=== PATIENT | female | born 1975 | race Caucasian/White ===

== ENCOUNTER → 2018-01-15 | Outpatient (CLI) | payer BC ==
--- NOTE | 2018-01-20 09:58 | MM ---
Reason for exam: screening (asymptomatic). Last mammogram was performed 4 years and 1 month ago. History: Patient has history of other cancer at age 36. Family history of breast cancer in paternal grandmother. Took hormonal contraceptives for 11 years beginning at age 20. Physical Findings: A clinical breast exam by your physician is recommended on an annual basis and results should be correlated with mammographic findings. MG 3D Screening Mammo W/Cad Bilateral CC and MLO view(s) were taken. Prior study comparison: December 20, 2013, bilateral digital screening mammo w/CAD. The breast tissue is heterogeneously dense. This may lower the sensitivity of mammography. No suspicious abnormality. No significant changes when compared with prior studies. ASSESSMENT: Negative, BI-RAD 1 RECOMMENDATION: Routine screening mammogram of both breasts in 1 year.
== END | disposition home or self-care (01) ==
LOC: RADMAMWWP 08:35
PROVIDERS: ATTEND Obstetrics & Gynecology
DX: Z12.31 Encounter for screening mammogram for malignant neoplasm of breast (principal)
CPT/HCPCS: 77063; 77067

== ENCOUNTER 2020-06-09 11:34 | Emergency (ER) | payer BC ==
--- NOTE | 2020-06-09 12:09 | ED ---
General Adult HPI - General Chief complaint: Seizure Stated complaint: Seizure Time Seen by Provider: 06/09/20 12:08 Source: patient, EMS Mode of arrival: EMS Limitations: no limitations - History of Present Illness Initial comments: Patient presents the ED by ambulance for evaluation. Patient states that she has had intermittent nausea and vomiting for the past 2 days. Patient states that she lost consciousness after vomiting once today, and she states that her reported that she may have had a seizure. Patient denies history of seizure disorder. Patient states that she is been under a lot of stress recently, and she states that she has felt very anxious. Patient states that she drinks about 2-3 glasses of wine daily, and she's been doing so for many years. Patient denies feeling shaky or ever having a seizure in the past when not drinking. Patient denies drinking any alcohol today. Patient denies illicit drug use. Patient denies having any pain, fever or chills, cough or cold symptoms, dysuria or urinary symptoms, headache, focal numbness/weakness/neuro deficit, visual changes, speech problems, neck/back/extremity pain, chest pain, dyspnea, palpitations, dizziness, abdominal pain, diarrhea, bloody or melanotic stool, hematemesis, or any other symptoms or complaints. - Related Data Home Medications Medication Instructions Recorded Confirmed Atorvastatin [Lipitor] 10 mg PO HS 06/09/20 06/09/20 Escitalopram [Lexapro] 20 mg PO HS 06/09/20 06/09/20 Metoprolol Succinate (ER) [Toprol 25 mg PO HS 06/09/20 06/09/20 Xl] Spironolactone [Aldactone] 25 mg PO HS 06/09/20 06/09/20 Allergies Allergy/AdvReac Type Severity Reaction Status Date / Time No Known Allergies Allergy Verified 06/09/20 13:14 Review of Systems ROS Statement: Those systems with pertinent positive or pertinent negative responses have been documented in the HPI. ROS Other: All systems not noted in ROS Statement are negative. Past Medical History Past Medical History: Asthma, Hypertension History of Any Multi-Drug Resistant Organisms: None Reported Past Surgical History: No Surgical Hx Reported Past Psychological History: Anxiety Smoking Status: Never smoker Past Alcohol Use History: Abuse, Daily, Heavy Past Drug Use History: None Reported General Exam Limitations: no limitations General appearance: alert, in no apparent distress Head exam: Present: atraumatic, normocephalic Eye exam: Present: normal appearance, PERRL, EOMI ENT exam: Present: normal oropharynx, mucous membranes moist Neck exam: Present: other (Trachea is in midline). Absent: tenderness, meningismus Respiratory exam: Present: normal lung sounds bilaterally. Absent: respiratory distress, wheezes, rales, rhonchi, stridor Cardiovascular Exam: Present: regular rate, normal rhythm, normal heart sounds, other (Normal radial pulses bilaterally) GI/Abdominal exam: Present: soft, normal bowel sounds. Absent: distended, tenderness, guarding Extremities exam: Present: full ROM. Absent: tenderness, pedal edema, calf tenderness Back exam: Absent: tenderness Neurological exam: Present: alert, oriented X3, CN II-XII intact. Absent: motor sensory deficit Psychiatric exam: Present: normal affect, normal mood Skin exam: Present: warm, dry, intact, normal color Course Vital Signs 06/09/20 06/09/20 11:45 13:04 Temperature 98.8 F Pulse Rate 99 94 Respiratory 17 18 Rate Blood Pressure 151/100 149/101 O2 Sat by Pulse 96 96 Oximetry - Reevaluation(s) Reevaluation #1: 06/09/20 13:28 Case, H&P, test results thus far and head CT report were discussed with Dr. Moran (ED physician at [facility]). Ambulance transfer to the [facility] ED was accepted by Dr. Moran. She has no further recommendations at this time. 06/09/20 13:34 Patient and are aware of the patient's test results thus far/head CT report and my discussion with Dr. Moran as above. Patient continues to deny having a headache, and she denies development of any new symptoms while in the ED. Patient continues to have a normal neurological exam, and she remains alert and breathing comfortably. Patient agrees with ambulance transfer to the [facility] ED at this time. EKG Findings - EKG Comments: EKG Findings:: Normal sinus rhythm, ventricular rate of 96 bpm, no ectopy, normal IA and QRS intervals, normal QT interval, nonspecific ST and T-wave abnormality, normal axis Medical Decision Making - Medical Decision Making Patient has been alert and in no acute distress with stable vital signs while in the ED. Patient has had a normal neurological exam on repeat. Patient's ED evaluation is positive for an elevated lipase level consistent with acute pancreatitis, as well as a noncontrast head CT that shows a possible petechial hemorrhage in the right frontal region. Given the patient's head CT findings, will transfer the patient to the [facility] ED for neurosurgical evaluation. Patient was treated with IV fluids and Ativan 1 mg IV in the ED. - Lab Data Result diagrams: 06/09/20 12:20 06/09/20 12:20 Lab Results 06/09/20 06/09/20 06/09/20 Range/Units 12:20 12:20 12:20 WBC 6.7 (3.8-10.6) k/uL RBC 4.20 (3.80-5.40) m/uL Hgb 14.9 (11.4-16.0) gm/dL Hct 44.7 (34.0-46.0) % MCV 106.4 H (80.0-100.0) fL MCH 35.4 H (25.0-35.0) pg MCHC 33.3 (31.0-37.0) g/dL RDW 12.8 (11.5-15.5) % Plt Count 111 L (150-450) k/uL Neutrophils % 83 % Lymphocytes % 7 % Monocytes % 6 % Eosinophils % 2 % Basophils % 1 % Neutrophils # 5.5 (1.3-7.7) k/uL Lymphocytes # 0.5 L (1.0-4.8) k/uL Monocytes # 0.4 (0-1.0) k/uL Eosinophils # 0.1 (0-0.7) k/uL Basophils # 0.1 (0-0.2) k/uL Macrocytosis Slight PT (9.0-12.0) sec INR (<1.2) APTT (22.0-30.0) sec Sodium 134 L (137-145) mmol/L Potassium 4.2 (3.5-5.1) mmol/L Chloride 94 L (98-107) mmol/L Carbon Dioxide 18 L (22-30) mmol/L Anion Gap 22 mmol/L BUN 10 (7-17) mg/dL Creatinine 0.57 (0.52-1.04) mg/dL Est GFR (CKD-EPI)AfAm >90 (>60 ml/min/1.73 sqM) Est GFR (CKD-EPI)NonAf >90 (>60 ml/min/1.73 sqM) Glucose 229 H (74-99) mg/dL Calcium 9.6 (8.4-10.2) mg/dL Magnesium 1.7 (1.6-2.3) mg/dL Total Bilirubin 4.1 H (0.2-1.3) mg/dL AST 216 H (14-36) U/L ALT 105 H (4-34) U/L Alkaline Phosphatase 99 (38-126) U/L Troponin I 0.016 (0.000-0.034) ng/mL Total Protein 8.1 (6.3-8.2) g/dL Albumin 5.5 H (3.5-5.0) g/dL Lipase 86016 H (23-300) U/L HCG, Qual Not Detected Urine Color Urine Appearance (Clear) Urine pH (5.0-8.0) Ur Specific Sumner (1.001-1.035) Urine Protein (Negative) Urine Glucose (UA) (Negative) Urine Ketones (Negative) Urine Blood (Negative) Urine Nitrite (Negative) Urine Bilirubin (Negative) Urine Urobilinogen (<2.0) mg/dL Ur Leukocyte Esterase (Negative) Urine RBC (0-5) /hpf Urine WBC (0-5) /hpf Ur Squamous Epith Cells (0-4) /hpf Hyaline Casts (0-2) /lpf Urine Mucus (None) /hpf Urine Opiates Screen (NotDetected) Ur Oxycodone Screen (NotDetected) Urine Methadone Screen (NotDetected) Ur Propoxyphene Screen (NotDetected) Ur Barbiturates Screen (NotDetected) U Tricyclic Antidepress (NotDetected) Ur Phencyclidine Scrn (NotDetected) Ur Amphetamines Screen (NotDetected) U Methamphetamines Scrn (NotDetected) U Benzodiazepines Scrn (NotDetected) Urine Cocaine Screen (NotDetected) U Marijuana (THC) Screen (NotDetected) Serum Alcohol <10 mg/dL 06/09/20 06/09/20 Range/Units 12:20 12:59 WBC (3.8-10.6) k/uL RBC (3.80-5.40) m/uL Hgb (11.4-16.0) gm/dL Hct (34.0-46.0) % MCV (80.0-100.0) fL MCH (25.0-35.0) pg MCHC (31.0-37.0) g/dL RDW (11.5-15.5) % Plt Count (150-450) k/uL Neutrophils % % Lymphocytes % % Monocytes % % Eosinophils % % Basophils % % Neutrophils # (1.3-7.7) k/uL Lymphocytes # (1.0-4.8) k/uL Monocytes # (0-1.0) k/uL Eosinophils # (0-0.7) k/uL Basophils # (0-0.2) k/uL Macrocytosis PT 11.9 (9.0-12.0) sec INR 1.2 H (<1.2) APTT 20.4 L (22.0-30.0) sec Sodium (137-145) mmol/L Potassium (3.5-5.1) mmol/L Chloride (98-107) mmol/L Carbon Dioxide (22-30) mmol/L Anion Gap mmol/L BUN (7-17) mg/dL Creatinine (0.52-1.04) mg/dL Est GFR (CKD-EPI)AfAm (>60 ml/min/1.73 sqM) Est GFR (CKD-EPI)NonAf (>60 ml/min/1.73 sqM) Glucose (74-99) mg/dL Calcium (8.4-10.2) mg/dL Magnesium (1.6-2.3) mg/dL Total Bilirubin (0.2-1.3) mg/dL AST (14-36) U/L ALT (4-34) U/L Alkaline Phosphatase (38-126) U/L Troponin I (0.000-0.034) ng/mL Total Protein (6.3-8.2) g/dL Albumin (3.5-5.0) g/dL Lipase (23-300) U/L HCG, Qual Urine Color Dark Yellow Urine Appearance Cloudy H (Clear) Urine pH 5.5 (5.0-8.0) Ur Specific Sumner 1.025 (1.001-1.035) Urine Protein 2+ H (Negative) Urine Glucose (UA) 4+ H (Negative) Urine Ketones 3+ H (Negative) Urine Blood Small H (Negative) Urine Nitrite Negative (Negative) Urine Bilirubin 1+ H (Negative) Urine Urobilinogen 3.0 (<2.0) mg/dL Ur Leukocyte Esterase Trace H (Negative) Urine RBC 3 (0-5) /hpf Urine WBC 4 (0-5) /hpf Ur Squamous Epith Cells 3 (0-4) /hpf Hyaline Casts 29 H (0-2) /lpf Urine Mucus Many H (None) /hpf Urine Opiates Screen Not Detected (NotDetected) Ur Oxycodone Screen Not Detected (NotDetected) Urine Methadone Screen Not Detected (NotDetected) Ur Propoxyphene Screen Not Detected (NotDetected) Ur Barbiturates Screen Not Detected (NotDetected) U Tricyclic Antidepress Not Detected (NotDetected) Ur Phencyclidine Scrn Not Detected (NotDetected) Ur Amphetamines Screen Not Detected (NotDetected) U Methamphetamines Scrn Not Detected (NotDetected) U Benzodiazepines Scrn Detected H (NotDetected) Urine Cocaine Screen Not Detected (NotDetected) U Marijuana (THC) Screen Not Detected (NotDetected) Serum Alcohol mg/dL - Radiology Data Radiology results: report reviewed (Noncontrast CT head shows a linear area of increased attenuation in the right frontal region likely representing a small petechial hemorrhage) Disposition Clinical Impression: Vomiting, Anxiety, Pancreatitis Narrative: Possible seizure; suspected intracranial hemorrhage Disposition: OTHER INSTITUTION NOT DEFINED Condition: Stable Is patient prescribed a controlled substance at d/c from ED?: No Referrals: Jaycee Kiran MD [Primary Care Provider] - 1-2 days Time of Disposition: 13:28 - Out of Hospital Transfer - Req. Specs Out of Hospital Transfer - Requested Specifics: Other Emergency Center ([facility])
[2020-06-09] MEDS ORDERED: SODIUM CHLORIDE 0.9% 1,000 ML IV STA (12:15)
[2020-06-09 12:34] LABS: Basophils # (A) 0.1 k/uL (0-0.2); Basophils % (A) 1 %; Eosinophils # (A) 0.1 k/uL (0-0.7); Eosinophils % (A) 2 %; HCT 44.7 % (34.0-46.0); HGB 14.9 gm/dL (11.4-16.0); Lymphocytes # (A) 0.5 k/uL (1.0-4.8); Lymphocytes % (A) 7 %; MCH 35.4 pg (25.0-35.0); MCHC 33.3 g/dL (31.0-37.0); MCV 106.4 fL (80.0-100.0); Macrocytosis Slight; Mean Platelet Volume 8.6; Monocytes # (A) 0.4 k/uL (0-1.0); Monocytes % (A) 6 %; Neutrophils # (A) 5.5 k/uL (1.3-7.7); Neutrophils % (A) 83 %; Platelet Count 111 k/uL (150-450); RDW 12.8 % (11.5-15.5); WBC 6.7 k/uL (3.8-10.6)
[2020-06-09 12:44] LABS: AST 216 U/L (14-36); African American GFR (CKD) >90 (>60 ml/min/1.73 sqM); Albumin 5.5 g/dL (3.5-5.0); Alcohol <10 mg/dL; Alkaline Phosphatase 99 U/L (38-126); Anion Gap 22 mmol/L; Blood Urea Nitrogen 10 mg/dL (7-17); Calcium 9.6 mg/dL (8.4-10.2); Carbon Dioxide 18 mmol/L (22-30); Chloride 94 mmol/L (98-107); Glucose 229 mg/dL (74-99); Magnesium 1.7 mg/dL (1.6-2.3); Non-African American GFR(CKD) >90 (>60 ml/min/1.73 sqM); Potassium 4.2 mmol/L (3.5-5.1); Sodium 134 mmol/L (137-145); Total Bilirubin 4.1 mg/dL (0.2-1.3); Total Protein 8.1 g/dL (6.3-8.2)
[2020-06-09 12:51] LABS: ALT 105 U/L (4-34)
[2020-06-09 12:54] LABS: HCG,Qualitative Serum Not Detected
--- NOTE | 2020-06-09 13:20 | CT ---
EXAMINATION TYPE: CT brain wo con DATE OF EXAM: 06/09/2020 COMPARISON: NONE HISTORY: Seizure CT DLP: 995.8 mGycm Automated exposure control for dose reduction was used. FINDINGS: There is a linear area of increased attenuation in the right frontal lobe which may be an area of pet echial blood. This measures 10 mm. No other focal abnormality is seen. Central structures are midline . There is no evidence of hydrocephalus. There is no mass effect or midline shift. Visualized portions of the paranasal sinuses and mastoids are clear. The bony calvarium is intact. IMPRESSION: LINEAR AREA OF INCREASED ATTENUATION IN THE RIGHT FRONTAL REGION LIKELY REPRESENTING A SMALL PETECHI AL HEMORRHAGE. THIS REPORT WAS PHONED TO DR. KATIE ACOSTA AT THE TIME OF REPORTING.
[2020-06-09 13:29] LABS: Appearance,Urine Cloudy (Clear); Bilirubin,Urine 1+ (Negative); Blood,Urine Small (Negative); Color,Urine Dark Yellow; Glucose,Urine (UA) 4+ (Negative); Hyaline Casts,Urine 29 /lpf (0-2); Leukocyte Esterase,Urine Trace (Negative); Mucus,Urine Many /hpf; Nitrite,Urine Negative (Negative); PH, Urine 5.5 (5.0-8.0); Protein,Urine 2+ (Negative); RBC,Urine 3 /hpf (0-5); Specific Gravity,Urine 1.025 (1.001-1.035); Squamous Epithelial Cell,Urine 3 /hpf (0-4); WBC,Urine 4 /hpf (0-5)
[2020-06-09] MEDS ORDERED: LORazepam 2 MG/ML INJ IV STA (13:29)
[2020-06-09 13:31] LABS: Ketones,Urine 3+ (Negative)
[2020-06-09 13:41] LABS: Amphetamine Screen,Urine Not Detected (NotDetected); Barbiturate Screen,Urine Not Detected (NotDetected); Benzodiazepines Screen,Urine Detected (NotDetected); Cocaine Screen,Urine Not Detected (NotDetected); Methadone Screen, Urine Not Detected (NotDetected); Opiate Screen,Urine Not Detected (NotDetected); Oxycodone Screen, Urine Not Detected (NotDetected); Phencyclidine Screen,Urine Not Detected (NotDetected); Tricyclic Antidepressant,Urine Not Detected (NotDetected); Urn Cannabinoid Scrn Not Detected (NotDetected)
[2020-06-09 13:41] LABS: INR 1.2 (<1.2); Prothrombin Time 11.9 sec (9.0-12.0)
[2020-06-09 13:46] LABS: Partial Thromboplastin Time 20.4 sec (22.0-30.0)
[2020-06-09 14:33] VITALS: BP 145/94; PULSE 75; RESP 17; TEMP 98
== END 2020-06-09 14:33 | disposition other institution (70) ==
LOC: EC 11:34
DX: K85.90 Acute pancreatitis without necrosis or infection, unspecified (principal); F41.9 Anxiety disorder, unspecified; I10 Essential (primary) hypertension; Z79.899 Other long term (current) drug therapy
CPT/HCPCS: 36415; 93005; 80053; 83690; 83735; 84484; 85025; 85610; 85730; 81001; 84703; 80306; 80320; 70450; 99285; 96374; 96361; J2060

== ENCOUNTER → 2020-06-25 | Outpatient (CLI) | payer BC ==
[2020-06-25 11:46] LABS: HCT 41.9 % (34.0-46.0); HGB 13.7 gm/dL (11.4-16.0); MCH 34.7 pg (25.0-35.0); MCHC 32.7 g/dL (31.0-37.0); Macrocytosis Moderate; Mean Platelet Volume 7.5; RBC 3.95 m/uL (3.80-5.40); RDW 13.6 % (11.5-15.5); WBC 9.1 k/uL (3.8-10.6)
[2020-06-25 11:50] LABS: Platelet Count 436 k/uL (150-450)
[2020-06-25 17:16] LABS: African American GFR (CKD) 130.3 (60.0-200.0); Anion Gap 7.5 mmol/L (4.00-12.00); BUN/Creat Ratio 8.33 Ratio (12.00-20.00); Calcium 10.2 mg/dL (8.7-10.3); Carbon Dioxide 29.5 mmol/L (21.6-31.8); Non-African American GFR(CKD) 112.4 (60.0-200.0); Potassium 4.4 mmol/L (3.5-5.5)
== END | disposition home or self-care (01) ==
LOC: LABWHC1 08:19
PROVIDERS: ATTEND Surgery
DX: I60.9 Nontraumatic subarachnoid hemorrhage, unspecified (principal)
CPT/HCPCS: 36415; 80048; 83690; 85027

== ENCOUNTER → 2020-07-16 | Outpatient (CLI) | payer BC ==
--- NOTE | 2020-07-16 08:06 | US ---
EXAMINATION TYPE: US gallbladder DATE OF EXAM: 07/16/2020 COMPARISON: NONE CLINICAL HISTORY: 44-year-old female K85.90 pancreatitis. Generalized abdominal bloating. TECHNIQUE: Multiple sonographic images of the right upper quadrant are obtained. FINDINGS: EXAM MEASUREMENTS: Liver Length: 16.3 cm Gallbladder Wall: 0.2 cm CBD: 0.3 cm Right Kidney: 10.0 x 4.2 x 4.1 cm Pancreas: Heterogeneity to the visualized portion may be secondary to underlying calcifications. Liver: Echogenic compatible with fatty infiltration. No focal lesion seen. Gallbladder: wnl Evidence for sonographic Almeida's sign: no CBD: wnl Right Kidney: No hydronephrosis IMPRESSION: 1. Heterogeneous appearance to the visualized pancreas, possibly secondary to underlying calcificatio ns. Query any history of chronic pancreatitis. Contrast enhanced CT as clinically indicated. 2. No gallstones or biliary ductal dilatation. 3. At least moderate hepatic steatosis.
== END | disposition home or self-care (01) ==
LOC: RADUSWWP 06:59
DX: K76.0 Fatty (change of) liver, not elsewhere classified (principal); R93.3 Abnormal findings on diagnostic imaging of other parts of digestive tract
CPT/HCPCS: 76705

== ENCOUNTER → 2020-09-03 | Outpatient (CLI) | payer BC ==
--- NOTE | 2020-09-04 14:19 | MM ---
Reason for exam: screening (asymptomatic). Last mammogram was performed 2 years and 8 months ago. History: Patient has history of other cancer at age 36. Family history of breast cancer in paternal grandmother. Took hormonal contraceptives for 11 years beginning at age 20. Physical Findings: A clinical breast exam by your physician is recommended on an annual basis and results should be correlated with mammographic findings. MG 3D Screening Mammo W/Cad Bilateral CC and MLO view(s) were taken. Prior study comparison: January 15, 2018, bilateral MG 3d screening mammo w/cad. December 20, 2013, bilateral digital screening mammo w/CAD. The breast tissue is heterogeneously dense. This may lower the sensitivity of mammography. There is no discrete abnormality. No significant changes when compared with prior studies. ASSESSMENT: Negative, BI-RAD 1 RECOMMENDATION: Routine screening mammogram of both breasts in 1 year.
== END | disposition home or self-care (01) ==
LOC: RADMAMWWP 16:34
PROVIDERS: ATTEND Obstetrics & Gynecology
DX: Z12.31 Encounter for screening mammogram for malignant neoplasm of breast (principal); Z80.3 Family history of malignant neoplasm of breast
CPT/HCPCS: 77063; 77067

== ENCOUNTER 2022-05-13 09:57 | Day surgery (SDC) | payer BC ==
[2022-05-09 11:01] VITALS: BMI 24.0
[~2022-05-13 09:57] MED LIST: LACTATED RINGERS 1,000 ML IV SCH; LIDOCAINE 1% (10MG/ML) FOR IV START INTRADERMA PRN
[2022-05-13 10:38] VITALS: TEMP 99.5
[2022-05-13] MEDS ORDERED: PROPOFOL 10 MG/ML 20 ML VIAL IV ONE (11:11)
--- NOTE | 2022-05-13 11:30 | P.PCN ---
Date of Procedure: 05/13/22 Procedure(s) Performed: BRIEF HISTORY: Patient is a 46-year-old pleasant white female scheduled for an elective colonoscopy as a part of evaluation of intermittent lower abdominal pain and change in bowel habits for the last several months duration. PROCEDURE PERFORMED: Colonoscopy. PREOPERATIVE DIAGNOSIS: Lower abdominal pain and change in bowel habits. IV sedation per Anesthesia. PROCEDURE: After informed consent was obtained, the patient, was brought into the endoscopy unit. IV sedation was administered by Anesthesia under continuous monitoring. Digital rectal examination was normal. Initially the Olympus CF-160 flexible video colonoscope was then inserted in the rectum, gradually advanced into the cecum without any difficulty. Careful examination was performed as the scope was gradually being withdrawn. Ileocecal valve and the appendiceal orifice were visualized and appeared normal. Prep was excellent. Mucosa of the cecum, ascending colon, transverse colon, descending colon, sigmoid colon, and rectum appeared normal. Retroflexion was performed in the rectum and no lesions were s een. The patient tolerated the procedure well. IMPRESSION: Normal-appearing colon from rectum to cecum no evidence of colorectal neoplasia. RECOMMENDATIONS: Findings of this examination were discussed with the patient as well as her family. She was advised to be a high-fiber Diet and take fiber supplements a regular basis. Recommend repeat screening colonoscopy in 10 years..
[2022-05-13 11:58] VITALS: BP 129/89; PULSE 65; RESP 18
== END 2022-05-13 12:12 | disposition home or self-care (01) ==
LOC: ORWHC2ENDO 09:57
PROVIDERS: ATTEND Internal Medicine Gastroenterology
DX: R19.4 Change in bowel habit (principal); R10.9 Unspecified abdominal pain; J45.909 Unspecified asthma, uncomplicated; F10.10 Alcohol abuse, uncomplicated; Z79.899 Other long term (current) drug therapy
CPT/HCPCS: 81025; 45378; J2704

== ENCOUNTER → 2024-06-28 | Outpatient (CLI) | payer BC ==
--- NOTE | 2024-07-26 09:43 | MM ---
Reason for Exam: Screening (asymptomatic). Last mammogram was performed 3 year(s) and 10 month(s) ago. Patient History: Menarche at age 13. First Full-Term at age 32. Late child-bearing (after 32). Other cancer, age 36. Hormonal Contraceptives for 11 years from age 20 until age 31. Paternal grandmother had breast cancer. Risk Values: Shelli 5 year model risk: 1.3%. NCI Lifetime model risk: 14.0%. Prior Study Comparison: 12/20/2013 Bilateral Screening Mammogram, [facility]. 01/15/2018 Bilateral Screening Mammogram, [facility]. 09/03/2020 Bilateral Screening Mammogram, [facility]. Tissue Density: The breasts are heterogeneously dense, which may obscure small masses. Findings: Analyzed By CAD. Right breast: There is no suspicious group of microcalcifications or new suspicious mass. Left breast: There is no suspicious group of microcalcifications or new suspicious mass. Overall Assessment: Negative, BI-RAD 1 Management: Screening Mammogram of both breasts in [address] [facility] will attempt to contact patient to return for supplemental views and ultrasound if indicated. Patient should continue monthly self-breast exams. A clinical breast exam by your physician is recommended on an annual basis. This exam should not preclude additional follow-up of suspicious palpable abnormalities. Note on Shelli scores and lifetime risk: 1. A Shelli score greater than 3% is considered moderate risk. If this is the case, consider specialist referral to assess eligibility for a risk reducing agent. 2. If overall lifetime risk for the development of breast cancer is 20% or higher, the patient may qualify for future screening with alternating mammogram and breast MRI. Electronically signed and approved by: Ricardo Charles DO
== END | disposition home or self-care (01) ==
LOC: RADMAMWWP 07:30
PROVIDERS: ATTEND Family Medicine
DX: Z12.31 Encounter for screening mammogram for malignant neoplasm of breast (principal); Z80.3 Family history of malignant neoplasm of breast
CPT/HCPCS: 77063; 77067

== ENCOUNTER 2024-10-19 20:56 | Inpatient (IN) | payer BC ==
--- NOTE | 2024-10-19 21:05 | ED ---
Seizure HPI - General Stated Complaint: Seizure Time Seen by Provider: 10/19/24 20:58 Source: RN notes reviewed, old records reviewed - History of Present Illness Initial Comments: This is a 48-year-old female to the ER for evaluation of seizure seizure activity at home recently started stopped her Wellbutrin which she believes she was placed on for seizures about 6 years ago put on aware of diagnosis of seizure at the time. Patient does admit to mild alcohol use. No other drugs were medical history takes no medications currently MD Complaint: seizure -: minutes(s) Description of Episode: loss of consciousness, tonic-clonic movement, post-event confusion -: second(s) Witnessed: yes - by bystander Trauma: Yes Seizure History: none Place: home, work Associated Symptoms: confusion Treatments Prior to Arrival: none - Related Data Home Medications Medication Instructions Recorded Confirmed Atorvastatin [Lipitor] 10 mg PO HS 06/09/20 05/09/22 Escitalopram [Lexapro] 20 mg PO HS 06/09/20 05/09/22 Metoprolol Succinate (ER) [Toprol 25 mg PO HS 06/09/20 05/09/22 Xl] ALPRAZolam [Xanax] 0.25 mg PO DAILY PRN 05/09/22 05/09/22 Fluticasone Nasal [place] [Flonase 1 spray EA NOSTRIL DAILY PRN 05/09/22 05/09/22 Nasal [place]] Ibuprofen [Motrin Ib] 200 mg PO DIRECTED PRN 05/09/22 05/09/22 Vitamin B Complex 1 each PO DAILY 05/09/22 05/09/22 Allergies Allergy/AdvReac Type Severity Reaction Status Date / Time bupropion [From Wellbutrin] Allergy Rash/Hives Verified 10/19/24 21:05 Review of Systems ROS Statement: Those systems with pertinent positive or pertinent negative responses have been documented in the HPI. ROS Other: All systems not noted in ROS Statement are negative. Past Medical History Past Medical History: Asthma, Cancer, Hyperlipidemia, Hypertension Additional Past Medical History / Comment(s): seizure x1 2 yrs ago (caused by pancreatitis/dehydration)., past hx asthma, melanoma, IBS/D. History of Any Multi-Drug Resistant Organisms: None Reported Past Surgical History: Uterine Ablation Past Anesthesia/Blood Transfusion Reactions: Motion Sickness, Postoperative Nausea & Vomiting (PONV) Past Psychological History: Anxiety, Depression Smoking Status: Never smoker Past Alcohol Use History: Daily Additional Past Alcohol Use History / Comment(s): states 1-2 glasses wine daily Past Drug Use History: None Reported - Past Family History Father Family Medical History: Cancer Additional Family Medical History / Comment(s): prostate cancer General Exam General appearance: alert, in no apparent distress Head exam: Present: atraumatic, normocephalic, normal inspection Eye exam: Present: normal appearance, PERRL, EOMI. Absent: scleral icterus, conjunctival injection, periorbital swelling ENT exam: Present: normal exam, mucous membranes moist Neck exam: Present: normal inspection. Absent: tenderness, meningismus, lymphadenopathy Respiratory exam: Present: normal lung sounds bilaterally. Absent: respiratory distress, wheezes, rales, rhonchi, stridor Cardiovascular Exam: Present: regular rate, normal rhythm, normal heart sounds. Absent: systolic murmur, diastolic murmur, rubs, gallop, clicks GI/Abdominal exam: Present: soft, normal bowel sounds. Absent: distended, tenderness, guarding, rebound, rigid Extremities exam: Present: normal inspection, full ROM, normal capillary refill. Absent: tenderness, pedal edema, joint swelling, calf tenderness Back exam: Present: normal inspection Neurological exam: Present: alert, oriented X3, CN II-XII intact Psychiatric exam: Present: normal affect, normal mood Skin exam: Present: warm, dry, intact, normal color. Absent: rash Course Vital Signs 10/19/24 20:58 Temperature 98.2 F Pulse Rate 101 H Respiratory 20 Rate Blood Pressure 147/100 O2 Sat by Pulse 100 Oximetry - Reevaluation(s) Reevaluation #1: 10/19/24 21:19 Medical records reviewed Reevaluation #2: 10/19/24 21:19 No recurrent seizure here in the ER Reevaluation #3: 10/19/24 21:19 Patient informed of results and questions answered Reevaluation #4: Was pt. sent in by a medical professional or institution (, PA, BEHAVIORAL HEALTH CARE COORDINATOR, urgent care, hospital, or custodial...) When possible be specific @ -no Did you speak to anyone other than the patient for history (EMS, parent, family, police, friend...)? What history was obtained from this source @ -no Did you review nursing and triage notes (agree or disagree)? Why? @ -agree Are old charts reviewed (outside hosp., previous admission, EMS record, old EKG, old radiological studies, urgent care reports/EKG's, custodial records)? Report findings @ -yes Differential Diagnosis (chest pain, altered mental status, abdominal pain women, abdominal pain men, vaginal bleeding, weakness, fever, dyspnea, syncope, headache, dizziness, GI bleed, back pain, seizure, CVA, palpatations, mental health, musculoskeletal)? @ -prior EKG interpreted by me (3pts min.). @ -yes X-rays interpreted by me (1pt min.). @ -yes negative for acute disease CT interpreted by me (1pt min.). @ -no U/S interpreted by me (1pt. min.). @ -no What testing was considered but not performed or refused? (CT, X-rays, U/S, labs)? Why? @ -none What meds were considered but not given or refused? Why? @ -none Did you discuss the management of the patient with other professionals (professionals i.e. , PA, BEHAVIORAL HEALTH CARE COORDINATOR, lab, RT, psych nurse, social services coordinator, paper rewinder, teacher, real estate utilization officer, vocational case manager)? Give summary @ -no Was smoking cessation discussed for >3mins.? @ -no Was critical care preformed (if so, how long)? @ -no Were there social determinants of health that impacted care today? How? (Homelessness, low income, unemployed, alcoholism, drug addiction, transportation, low edu. Level, literacy, decrease access to med. care, [facility], rehab)? @ -none Was there de-escalation of care discussed even if they declined (Discuss DNR or withdrawal of care, Hospice)? DNR status @ -no What co-morbidities impacted this encounter? (DM, HTN, Smoking, COPD, CAD, Cancer, CVA, ARF, Chemo, Hep., AIDS, mental health diagnosis, sleep apnea, morbid obesity)? @ -none Was patient admitted / discharged? Hospital course, mention meds given and route, prescriptions, significant lab abnormalities, going to OR and other pertinent info. @ - Undiagnosed new problem with uncertain prognosis? @ -no Drug Therapy requiring intensive monitoring for toxicity (Heparin, Nitro, Insulin, Cardizem)? @ -no Were any procedures done? @ -no Diagnosis/symptom? @ - Acute, or Chronic, or Acute on Chronic? @ -Acute Uncomplicated (without systemic symptoms) or Complicated (systemic symptoms)? @ -Complicated Side effects of treatment? @ -no Exacerbation, Progression, or Severe Exacerbation? @ -exacerbation Poses a threat to life or bodily function? How? (Chest pain, [place], [place], pneumonia, PE, COPD, DKA, ARF, appy, cholecystitis, CVA, Diverticulitis, Homicidal, Suicidal, threat to staff... and all critical care pts) @ -yes Reevaluation #5: Differential Seizure: Recurrent seizure disorder, febrile seizure, alcohol withdrawal, stimulants, meningitis, encephalitis, intercranial hemorrhage, intracranial tumor, stroke, eclampsia, thyrotoxicosis, hypocalcemia, hyponatremia, hypernatremia, hypomagnesemia, psychogenic, this is not meant to be an all-inclusive list. Medical Decision Making - Medical Decision Making 48 female to be admitted for new onset seizure - EKG Data -: EKG Interpreted by Me (Sinus 89 NC 142 QRS 95 QTc 438) - Radiology Data Radiology results: report reviewed (CT brain is negative for acute disease), image reviewed Disposition Clinical Impression: New onset seizure, Generalized seizure Disposition: ADMITTED IP TO THIS [facility] Condition: Fair Instructions (If sedation given, give patient instructions): Seizure/Epilepsy Discharge Instructions & Follow-Up Is patient prescribed a controlled substance at d/c from ED?: No Referrals: Jaycee Kiran MD [Primary Care Provider] - 1-2 days Time of Disposition: 22:00
[2024-10-19] MEDS: SODIUM CHLORIDE 0.9% 1,000 ML IV STA (21:12)
[2024-10-19] MEDS: LORazepam 2 MG/ML INJ IV STA (21:14)
[2024-10-19] MEDS: levETIRAcetam IV 500 MG/5 ML VIAL IVP STA (21:16)
[2024-10-19] MEDS ORDERED: LORazepam 1 MG TAB PO PRN ×4 (21:16)
[2024-10-19] MEDS ORDERED: LORazepam 2 MG/ML INJ IV PRN ×2 (21:16)
[2024-10-19] MEDS ORDERED: NALOXONE 0.4 MG/ML 1 ML VIAL IV PRN (21:17)
[2024-10-19] MEDS ORDERED: ONDANSETRON 4 MG/2 ML VIAL IVP PRN (21:17)
[2024-10-19 21:20] LABS: ALT 64 U/L (4-34); AST 194 U/L (14-36); Acetaminophen <10.0 ug/mL; African American GFR (CKD) >90 (>60 ml/min/1.73 sqM); Albumin 4.6 g/dL (3.5-5.0); Alkaline Phosphatase 226 U/L (38-126); Anion Gap 21 mmol/L; Blood Urea Nitrogen 5 mg/dL (7-17); Calcium 9.3 mg/dL (8.4-10.2); Carbon Dioxide 20 mmol/L (22-30); Chloride 90 mmol/L (98-107); Glucose 249 mg/dL (74-99); Magnesium 1.4 mg/dL (1.6-2.3); Non-African American GFR(CKD) >90 (>60 ml/min/1.73 sqM); Potassium 3.6 mmol/L (3.5-5.1); Salicylate <1.0 mg/dL; Sodium 131 mmol/L (137-145); Total Bilirubin 5.8 mg/dL (0.2-1.3); Total Protein 7.5 g/dL (6.3-8.2)
[2024-10-19 21:25] LABS: Basophils % (A) 1 %; Eosinophils % (A) 0 %; HCT 40.8 % (34.0-46.0); Lymphocytes # (A) 0.5 k/uL (1.0-4.8); Lymphocytes % (A) 7 %; MCH 36.9 pg (25.0-35.0); MCHC 34.5 g/dL (31.0-37.0); MCV 107.2 fL (80.0-100.0); Macrocytosis Moderate; Mean Platelet Volume 8.3; Monocytes # (A) 0.4 k/uL (0-1.0); Monocytes % (A) 6 %; Neutrophils # (A) 5.7 k/uL (1.3-7.7); Neutrophils % (A) 85 %; RDW 12.2 % (11.5-15.5); WBC 6.8 k/uL (3.8-10.6)
[2024-10-19 21:33] LABS: Platelet Count 73 k/uL (150-450)
--- NOTE | 2024-10-19 21:44 | CT ---
EXAMINATION TYPE: CT brain wo con DATE OF EXAM: 10/19/2024 9:38 PM COMPARISON: None. CLINICAL INDICATION: Female, 48 years old with history of seizure activity, Seizure. TECHNIQUE: Brain: Axial CT images of the brain were obtained with coronal and sagittal reformats created and rev iewed. Contrast used: None. Oral contrast used: None. CT DLP: 1037.4 mGycm, Automated exposure control for dose reduction was used. FINDINGS: Brain: Extra-axial spaces: No abnormal extra-axial fluid collections. Ventricular system: Within normal limits Cerebral parenchyma: No acute intraparenchymal hemorrhage or mass effect. The kay-white junction is well differentiated. Cerebellum: Unremarkable. Mass effect: No evidence of midline shift. Intracranial vasculature: unremarkable Soft tissues: Normal. Calvarium/osseous structures: No depressed skull fracture. Paranasal sinuses and mastoid air cells: Mild scattered paranasal sinus disease. Visualized orbits: Orbital contents are intact. IMPRESSION: No acute intracranial process. [facility], , 10/19/2024 9:42 PM
[2024-10-19] MEDS: SODIUM CHLORIDE 0.9% 1,000 ML IV SCH (21:49)
[2024-10-19] MEDS: MAGNESIUM OXIDE 400 MG TAB PO STA ×2 (22:24)
[2024-10-19] MEDS: MAGNESIUM SULFATE-D5W PMX 1 GM in DEXTROSE/WATER 1 100ML.BAG IVPB ONE (22:25)
[2024-10-20 01:16] LABS: Alcohol <10 mg/dL; Lipase 221 U/L (23-300)
[2024-10-20] MEDS: LORazepam 2 MG/ML INJ IV PRN (04:22)
--- NOTE | 2024-10-20 07:24 | P.CNNES ---
History of Present Illness Consult date: 10/20/24 Reason for Consult: seizure at home, hx. sz 4 yers ago Chief complaint: "I do not know what happened, but I may have had a seizure." History of Present Illness: Ms. Biggs is a 48-year-old right-handed female with history of asthma as well as cancer, hypertension, pancreatitis, melanoma, major depression, and anxiety. Patient was seen in the [facility] emergency room on October 19, 2020 for after suffering a witnessed seizure at home. Family apparently stated she collapsed and shook for a period of time. She does state that she bit her tongue on the side but did not lose you urinary or bowel incontinence. Of note, she does report a previous seizure approximately 4 years ago, however did not take medication for this until approximately 2 weeks ago. She was placed on levetiracetam as well as Wellbutrin for anxiety, but was discontinued from Wellbutrin approximately a week ago. She does note a history of alcohol use and notes drinking at least 3 to 4 glasses of wine 2 days ago but did not drink yesterday. She was loaded with Keppra 1000 mg x 1 in the emergency room yesterday, she has had no further seizure events and feels stable at this time. Neurology has been consulted for further management recommendations. Review of Systems Constitutional: Reports as per HPI Ears, nose, mouth and throat: Reports as per HPI Cardiovascular: Reports as per HPI Respiratory: Reports as per HPI Gastrointestinal: Reports abdominal pain (abdominal pain with anxiety.) Genitourinary: Reports as per HPI Menstruation: Reports cycle > 35 days Musculoskeletal: Reports as per HPI Integumentary: Reports as per HPI Neurological: Reports as per HPI Psychiatric: Reports as per HPI, Reports anxiety Endocrine: Reports as per HPI Past Medical History Past Medical History: Asthma, Cancer, Hyperlipidemia, Hypertension Additional Past Medical History / Comment(s): seizure x1 2 yrs ago (caused by pancreatitis/dehydration)., past hx asthma, melanoma, IBS/D. History of Any Multi-Drug Resistant Organisms: None Reported Past Surgical History: Uterine Ablation Past Anesthesia/Blood Transfusion Reactions: Motion Sickness, Postoperative Nausea & Vomiting (PONV) Past Psychological History: Anxiety, Depression Smoking Status: Never smoker Past Alcohol Use History: Daily Additional Past Alcohol Use History / Comment(s): states 1-2 glasses wine daily Past Drug Use History: None Reported - Past Family History Father Family Medical History: Cancer Additional Family Medical History / Comment(s): prostate cancer Medications and Allergies Home Medications Medication Instructions Recorded Confirmed Type Atorvastatin [Lipitor] 10 mg PO HS 06/09/20 05/09/22 History Escitalopram [Lexapro] 20 mg PO HS 06/09/20 05/09/22 History Metoprolol Succinate (ER) [Toprol 25 mg PO HS 06/09/20 05/09/22 History Xl] ALPRAZolam [Xanax] 0.25 mg PO DAILY PRN 05/09/22 05/09/22 History Fluticasone Nasal [place] [Flonase 1 spray EA NOSTRIL DAILY PRN 05/09/22 05/09/22 History Nasal [place]] Ibuprofen [Motrin Ib] 200 mg PO DIRECTED PRN 05/09/22 05/09/22 History Vitamin B Complex 1 each PO DAILY 05/09/22 05/09/22 History Allergies Allergy/AdvReac Type Severity Reaction Status Date / Time bupropion [From Wellbutrin] Allergy Rash/Hives Verified 10/19/24 21:05 Physical Examination - Vital Signs Vital Signs: Vital Signs Temp Pulse Resp BP Pulse Ox 10/20/24 06:14 88 18 117/83 98 10/20/24 04:00 86 18 119/84 98 10/20/24 03:00 98 18 122/86 98 10/20/24 00:00 97 18 107/85 96 10/19/24 22:07 91 18 118/90 97 10/19/24 20:58 98.2 F 101 H 20 147/100 100 Intake and Output 10/19/24 10/20/24 10/20/24 22:59 06:59 14:59 Other: Weight 61.235 kg - Constitutional General appearance: average body habitus - EENT EENT: PERRL - Respiratory Respiratory: chest non-tender, lungs clear, normal breath sounds - Cardiovascular Cardiovascular: regular rate, no murmurs - Gastrointestinal Gastrointestinal: normoactive bowel sounds, non-tender - Integumentary Integumentary: normal - Neurologic Cranial nerve examination: PERRL, EOMI, V1/V2/V3 grossly intact, face symmetric, tongue midline Sensorimotor examination: intact Detailed motor examination: full strength in all major muscle groups Detailed sensory examination: intact Reflex and gait examination: intact Results Noncontrast CT of the head from October 19 was read as normal. EKG reveals normal sinus rhythm at 89 bpm. - Laboratory Findings CBC and BMP: 10/19/24 21:05 10/19/24 21:05 Abnormal Lab Findings: Abnormal Labs 10/19/24 10/19/24 21:05 21:05 MCV 107.2 H MCH 36.9 H Plt Count 73 L Lymphocytes # 0.5 L Sodium 131 L Chloride 90 L Carbon Dioxide 20 L BUN 5 L Creatinine 0.50 L Glucose 249 H Magnesium 1.4 L Total Bilirubin 5.8 H AST 194 H ALT 64 H Alkaline Phosphatase 226 H Assessment and Plan Assessment: Ms. Eugene is a 48-year-old right-handed female with history of seizure 4 years ago. She was recently started on levetiracetam as well as Wellbutrin, but was discontinued from Wellbutrin. She has been drinking at least 3 to 4 glasses of wine approximately 2 days ago but did not drink yesterday. She suffered a witnessed seizure event at home. This may be secondary to alcohol use, as it occurred in the setting of taking levetiracetam. Plan: 1. I have ordered a routine electroencephalogram to assess for seizure a ctivity. 2. I will continue her on Keppra 500 mg p.o. every 12 hours at this time, as I am unsure if she has a documented seizure disorder. This should continue as outpatient as well. 3. I have ordered a vitamin B12 level as it is noted her MCV is somewhat elevated around 107. 4. Neurology will continue to follow her in house and make further recommendations as needed.
[2024-10-20] MEDS: MAGNESIUM OXIDE 400 MG TAB PO SCH (08:31)
[2024-10-20] MEDS: FOLIC ACID 1 MG TAB PO SCH (08:31)
[2024-10-20] MEDS: MULTIVITAMINS, THERA 1 EACH TAB PO SCH (08:31)
[2024-10-20] MEDS: levETIRAcetam 500 MG TAB PO SCH (08:31)
[2024-10-20] MEDS: LORazepam 0.5 MG TAB PO PRN (08:34)
[2024-10-20 09:19] LABS: Basophils % (A) 0 %; Eosinophils # (A) 0.1 k/uL (0-0.7); Eosinophils % (A) 3 %; HCT 36.7 % (34.0-46.0); HGB 12.6 gm/dL (11.4-16.0); Lymphocytes # (A) 0.5 k/uL (1.0-4.8); Lymphocytes % (A) 10 %; MCH 36.7 pg (25.0-35.0); MCHC 34.3 g/dL (31.0-37.0); MCV 107.1 fL (80.0-100.0); Macrocytosis Moderate; Mean Platelet Volume 8.8; Monocytes # (A) 0.3 k/uL (0-1.0); Monocytes % (A) 6 %; Neutrophils # (A) 3.6 k/uL (1.3-7.7); Neutrophils % (A) 79 %; RBC 3.43 m/uL (3.80-5.40); RDW 12.2 % (11.5-15.5); WBC 4.5 k/uL (3.8-10.6)
[2024-10-20 09:30] LABS: ALT 60 U/L (4-34); AST 127 U/L (14-36); African American GFR (CKD) >90 (>60 ml/min/1.73 sqM); Albumin 3.7 g/dL (3.5-5.0); Alkaline Phosphatase 176 U/L (38-126); Anion Gap 8 mmol/L; Blood Urea Nitrogen 8 mg/dL (7-17); Calcium 8.5 mg/dL (8.4-10.2); Carbon Dioxide 32 mmol/L (22-30); Chloride 93 mmol/L (98-107); Glucose 148 mg/dL (74-99); Magnesium 1.9 mg/dL (1.6-2.3); Non-African American GFR(CKD) >90 (>60 ml/min/1.73 sqM); Phosphorus 1.8 mg/dL (2.5-4.5); Potassium 3.8 mmol/L (3.5-5.1); Sodium 133 mmol/L (137-145); Total Bilirubin 4.8 mg/dL (0.2-1.3); Total Protein 6.4 g/dL (6.3-8.2)
[2024-10-20 09:31] LABS: Platelet Count 67 k/uL (150-450)
[2024-10-20] MEDS ORDERED: Magnesium Replacement Protocol 1 EACH MISC MISCELLANE PRN (10:54)
--- NOTE | 2024-10-20 10:55 | P.HPIM ---
History of Present Illness This is a pleasant 48 years old female with past medical history of multiple medical problems, including alcohol use disorder. There was questionable history of seizure but patient confirms to me she was not on any seizure medication lately for example the last month however her doctor started her on Wellbutrin for anxiety which he did she took it only for 1 day but that followed by rash and stomach upset so she contacted her PCP who discontinued next day. That was 1 week earlier. Patient To feel anxious, kept to have some stomach upset. She states that she has 3-4 drinks of liquor every day however 2 days ago she could not eat or drink because of her stomach upset. And while she was upstairs patient looks like she fell and developed a seizure lasted for 1 to 2 minutes, it was tonic-clonic seizure witnessed by who confirms this to me while he is at bedside and help with given information to the patient. P atient herself she said she was going upstairs but She could not remember what happened and they were picking her up to the hospital. She bit her heart going. She denies urine or bowel incontinence. She denies smoking or illicit drugs. No GI/ symptoms. No headache dizziness weakness or numbness Patient denies depression or suicidal ideation or delusion or hallucination She is afebrile Labs reviewed, sodium 131 and 133, liver enzymes slightly elevated which is trending down Rest of CBC, BMP, INR and troponin were unremarkable. Lipase negative Ammonia level is normal Magnesium slightly low at 1.4 Serum alcohol less than 10. Salicylate and acetaminophen level are negative EKG showing sinus rhythm at [address]-T changes CT of the brain is negative for acute process Review of Systems Review of systems CONSTITUTIONAL: No fever, no malaise, no fatigue. HEENT: No recent visual problems or hearing problems. Denied any sore throat. CARDIOVASCULAR: No orthopnea, PND, no palpitations, no syncope. PULMONARY: No shortness of breath, no cough, no hemoptysis. GASTROINTESTINAL: No diarrhea, no nausea, no vomiting, no abdominal pain. Normoa ctive bowel sounds. NEUROLOGICAL: No headaches, no weakness, no numbness. HEMATOLOGICAL: Denies any bleeding or petechiae. GENITOURINARY: Denies any burning micturition, frequency, or urgency. MUSCULOSKELETAL/RHEUMATOLOGICAL: Denies any joint pain, swelling, or any muscle pain. ENDOCRINE: Denies any polyuria or polydipsia. Past Medical History Past Medical History: Asthma, Cancer, Hyperlipidemia, Hypertension Additional Past Medical History / Comment(s): seizure x1 2 yrs ago (caused by pancreatitis/dehydration)., past hx asthma, melanoma, IBS/D. History of Any Multi-Drug Resistant Organisms: None Reported Past Surgical History: Uterine Ablation Past Anesthesia/Blood Transfusion Reactions: Motion Sickness, Postoperative Nausea & Vomiting (PONV) Past Psychological History: Anxiety, Depression Smoking Status: Never smoker Past Alcohol Use History: Daily Additional Past Alcohol Use History / Comment(s): states 1-2 glasses wine daily Past Drug Use History: None Reported - Past Family History Father Family Medical History: Cancer Additional Family Medical History / Comment(s): prostate cancer Medications and Allergies Home Medications Medication Instructions Recorded Confirmed Type Escitalopram [Lexapro] 20 mg PO HS 06/09/20 10/20/24 History ALPRAZolam [Xanax] 0.5 mg PO BID PRN 10/20/24 10/20/24 History Metoprolol Succinate (ER) [Toprol 25 mg PO HS 10/20/24 10/20/24 History Xl] Multivitamins, Thera [Multivitamin 1 tab PO DAILY 10/20/24 10/20/24 History (formulary)] Allergies Allergy/AdvReac Type Severity Reaction Status Date / Time bupropion [From Wellbutrin] Allergy Rash/Hives Verified 10/20/24 09:23 Physical Exam Vitals: Vital Signs Temp Pulse Resp BP Pulse Ox 10/20/24 07:35 84 14 97 10/20/24 06:14 88 18 117/83 98 10/20/24 04:00 86 18 119/84 98 10/20/24 03:00 98 18 122/86 98 10/20/24 00:00 97 18 107/85 96 10/19/24 22:07 91 18 118/90 97 10/19/24 20:58 98.2 F 101 H 20 147/100 100 Intake and Output 10/19/24 10/20/24 10/20/24 22:59 06:59 14:59 Other: Weight 61.235 kg GENERAL: The patient is alert and oriented x3, not in any acute distress. Well developed, well nourished. -HEENT: Pupils are round and equally reacting to light. EOMI. No scleral icterus. No conjunctival pallor. Normocephalic, atraumatic. No pharyngeal erythema. No thyromegaly. Small tongue bite at the tip of the tongue with no open wound as well as the lip CARDIOVASCULAR: S1 and S2 present. No murmurs, rubs, or gallops. PULMONARY: Chest is clear to auscultation, no wheezing , no crackles. ABDOMEN: Soft, nontender, nondistended, normoactive bowel sounds. No palpable organomegaly. MUSCULOSKELETAL: No joint swelling or deformity. EXTREMITIES: No cyanosis, clubbing, or pedal edema. NEUROLOGICAL: Gross neurological examination did not reveal any focal deficits. SKIN: N generalized macular papular rashes mainly in the trunk and proximal extremities, no target lesion, no mouth ulcers. no petechiae. Results CBC & Chem 7: 10/20/24 09:07 10/20/24 09:07 Labs: Abnormal Lab Results - Last 24 Hours (Table) 10/19/24 10/19/24 Range/Units 21:05 21:05 MCV 107.2 H (80.0-100.0) fL MCH 36.9 H (25.0-35.0) pg Plt Count 73 L (150-450) k/uL Lymphocytes # 0.5 L (1.0-4.8) k/uL Sodium 131 L (137-145) mmol/L Chloride 90 L (98-107) mmol/L Carbon Dioxide 20 L (22-30) mmol/L BUN 5 L (7-17) mg/dL Creatinine 0.50 L (0.52-1.04) mg/dL Glucose 249 H (74-99) mg/dL Magnesium 1.4 L (1.6-2.3) mg/dL Total Bilirubin 5.8 H (0.2-1.3) mg/dL AST 194 H (14-36) U/L ALT 64 H (4-34) U/L Alkaline Phosphatase 226 H (38-126) U/L Assessment and Plan Assessment: Tonic-clonic seizure lasted for 2 minutes Alcohol use disorder at risk of alcohol withdrawal Anxiety Maculopapular rash of the trunk and proximal extremities Stomach upset most likely related to alcohol and allergic reaction with a rash Alcoholic transaminitis Mild hyponatremia, most likely hypovolemic, improving Plan: Continue with normal saline Continue with CIWA and IV hydration Continue monitoring rash, improving as per patient Neurology team consult Patient started on Keppra 500 mg twice daily Labs and medication were reviewed.. Continue same treatment. Continue with symptomatic treatment. Resume home medication. Monitor labs and vitals. DVT and GI prophylaxis. Further recommendations as per clinical course of the patient DVT prophylaxis: Subcutaneous heparin GI Prophylaxis: Pepcid PT/OT: Pending Prognosis is guarded
[2024-10-20] MEDS: HEPARIN SODIUM,PORCINE 5,000 UNIT/ML 1 ML VIAL SQ SCH (13:07)
[2024-10-20] MEDS: PANTOPRAZOLE 40 MG/10 ML VIAL IVP SCH (13:08)
[2024-10-20] MEDS: THIAMINE 100 MG/ML 2 ML VIAL IVP SCH (13:08)
[2024-10-21 06:15] LABS: Basophils % (A) 1 %; Eosinophils # (A) 0.2 k/uL (0-0.7); Eosinophils % (A) 4 %; HCT 37.7 % (34.0-46.0); HGB 12.9 gm/dL (11.4-16.0); Lymphocytes # (A) 0.7 k/uL (1.0-4.8); Lymphocytes % (A) 14 %; MCH 37.4 pg (25.0-35.0); MCHC 34.1 g/dL (31.0-37.0); MCV 109.5 fL (80.0-100.0); Macrocytosis Moderate; Monocytes # (A) 0.3 k/uL (0-1.0); Monocytes % (A) 7 %; Neutrophils # (A) 3.3 k/uL (1.3-7.7); Neutrophils % (A) 72 %; RBC 3.44 m/uL (3.80-5.40); RDW 11.7 % (11.5-15.5); WBC 4.5 k/uL (3.8-10.6)
[2024-10-21 06:27] LABS: African American GFR (CKD) >90 (>60 ml/min/1.73 sqM); Albumin 3.5 g/dL (3.5-5.0); Anion Gap 4 mmol/L; Bilirubin, Conjugated 2.1 mg/dL (0.0-0.3); Bilirubin, Delta 1.8 mg/dL (0.0-0.2); Bilirubin,Unconjugated 2.1 mg/dL (0.0-1.1); Blood Urea Nitrogen 5 mg/dL (7-17); Calcium 8.3 mg/dL (8.4-10.2); Carbon Dioxide 31 mmol/L (22-30); Chloride 97 mmol/L (98-107); Glucose 136 mg/dL (74-99); Magnesium 1.8 mg/dL (1.6-2.3); Non-African American GFR(CKD) >90 (>60 ml/min/1.73 sqM); Potassium 2.8 mmol/L (3.5-5.1); Sodium 132 mmol/L (137-145); Total Protein 6.2 g/dL (6.3-8.2)
[2024-10-21 06:28] LABS: ALT 60 U/L (4-34); AST 146 U/L (14-36); Alkaline Phosphatase 171 U/L (38-126)
[2024-10-21 06:31] LABS: Platelet Count 63 k/uL (150-450)
[2024-10-21] MEDS ORDERED: Potassium Replacement Protocol 1 EACH MISC MISCELLANE PRN (09:00)
[2024-10-21] MEDS ORDERED: diphenhydrAMINE 25 MG CAP PO PRN (09:11)
--- NOTE | 2024-10-21 09:25 | P.PN ---
Subjective This is a pleasant 48 years old female with past medical history of multiple medical problems, including alcohol use disorder. There was questionable history of seizure but patient confirms to me she was not on any seizure medication lately for example the last month however her doctor started her on Wellbutrin for anxiety which he did she took it only for 1 day but that followed by rash and stomach upset so she contacted her PCP who discontinued next day. That was 1 week earlier. Patient To feel anxious, kept to have some stomach upset. She states that she has 3-4 drinks of liquor every day however 2 days ago she could not eat or drink because of her stomach upset. And while she was upstairs patient looks like she fell and developed a seizure lasted for 1 to 2 minutes, it was tonic-clonic seizure witnessed by who confirms this to me while he is at bedside and help with given information to the patient. Patient herself she said she was going upstairs but She could not remember what happened and they were picking her up to the hospital. She bit her heart going. She denies urine or bowel incontinence. She denies smoking or illicit drugs. No GI/ symptoms. No headache dizziness weakness or numbness Patient denies depression or suicidal ideation or delusion or hallucination She is afebrile Labs reviewed, sodium 131 and 133, liver enzymes slightly elevated which is trending down Rest of CBC, BMP, INR and troponin were unremarkable. Lipase negative Ammonia level is normal Magnesium slightly low at 1.4 Serum alcohol less than 10. Salicylate and acetaminophen level are negative EKG showing sinus rhythm at [address]-T changes CT of the brain is negative for acute process 10/21 Patient with no more seizure activity, she was informed she is on Keppra she should continue on it and she agrees. Also patient was instructed to follow-up with the neurologist as an outpatient and suggested Dr. nichol aguilar and she agrees. EEG done and result is pending Patient has severe low potassium 2.8 today which is replaced per protocol and going to check. Magnesium is at reference range 1.8-1.9. She is already on oral magnesium twice daily. Platelets 73 down to 63 most likely secondary to alcohol effect I will counseled the patient to quit drinking alcohol and she agrees I suggested to go to detox but she declines. Her last drink was before Thursday. Patient wants to stay in the hospital for another 24 hours to make sure no withdrawal symptoms before she leaves. Currently her CIWA score is 0-1 Her rash is significantly improved and fading away Review of systems CONSTITUTIONAL: No fever, no malaise, no fatigue. HEENT: No recent visual problems or hearing problems. Denied any sore throat. CARDIOVASCULAR: No orthopnea, PND, no palpitations, no syncope. PULMONARY: No shortness of breath, no cough, no hemoptysis. GENITOURINARY: Denies any burning micturition, frequency, or urgency. MUSCULOSKELETAL/RHEUMATOLOGICAL: Denies any joint pain, swelling, or any muscle pain. ENDOCRINE: Denies any polyuria or polydipsia. Active Medications Generic Name Dose Route Start Last Admin Trade Name Freq PRN Reason Stop Dose Admin Diphenhydramine HCl 25 mg 10/21/24 09:11 Diphenhydramine 25 Mg Cap PO BID PRN Allergic Reaction Folic Acid 1 mg 10/20/24 09:00 10/21/24 09:04 Folic Acid 1 Mg Tab PO 1 mg DAILY TAMIKO Administration Heparin Sodium (Porcine) 5,000 unit 10/20/24 11:00 10/21/24 09:04 Heparin Sodium,Porcine 5,000 Unit/Ml 1 Ml Vial SQ Not Given Q12HR TAMIKO Sodium Chloride 1,000 mls @ 75 mls/hr 10/19/24 21:30 10/20/24 20:31 Saline 0.9% IV 75 mls/hr .[id number] TAMIKO Administration Levetiracetam 500 mg 10/20/24 09:00 10/21/24 09:04 Levetiracetam 500 Mg Tab PO 500 mg Q12HR TAMIKO Administration Lorazepam 2 mg 10/19/24 21:16 Lorazepam 1 Mg Tab PO Q3HR PRN Ciwa 8 To 9 Lorazepam 2 mg 10/19/24 21:16 Lorazepam 1 Mg Tab PO Q2HR PRN Ciwa 10 or greater Lorazepam 1 mg 10/19/24 21:16 Lorazepam 1 Mg Tab PO Q4HR PRN Ciwa 6 To 7 Lorazepam 0.5 mg 10/19/24 21:16 10/20/24 08:34 Lorazepam 0.5 Mg Tab PO 0.5 mg Q4HR PRN Administration Ciwa 4 To 5 Lorazepam 2 mg 10/19/24 21:16 Lorazepam 2 Mg/Ml Inj IV 10/21/24 21:17 Q10M PRN CIWA 16 or higher Lorazepam 1 mg 10/19/24 21:16 10/20/24 04:22 Lorazepam 2 Mg/Ml Inj IV 1 mg Q2HR PRN Administration CIWA 8 or 9 Lorazepam 1 mg 10/19/24 21:16 Lorazepam 2 Mg/Ml Inj IV Q1HR PRN CIWA 10 to 15 Lorazepam 1 mg 10/19/24 21:16 Lorazepam 1 Mg Tab PO Q1HR PRN Alcohol Withdrawal Magnesium Oxide 400 mg 10/20/24 09:00 10/21/24 09:05 Magnesium Oxide 400 Mg Tab PO 400 mg BID TAMIKO Administration Miscellaneous Information 1 each 10/20/24 10:54 Magnesium Replacement Protocol 1 Each Misc MISCELLANE DAILY PRN Per Protocol Protocol Miscellaneous Information 1 each 10/21/24 09:00 Potassium Replacement Protocol 1 Each Misc MISCELLANE DAILY PRN Per Protocol Protocol Multivitamins 1 each 10/20/24 09:00 10/21/24 09:04 Multivitamins, Thera 1 Each Tab PO 1 each DAILY TAMIKO Administration Naloxone HCl 0.2 mg 10/19/24 21:17 Naloxone 0.4 Mg/Ml 1 Ml Vial IV Q2M PRN Opioid Reversal Ondansetron HCl 4 mg 10/19/24 21:17 Ondansetron 4 Mg/2 Ml Vial IVP Q8HR PRN Nausea And Vomiting Pantoprazole Sodium 40 mg 10/20/24 11:00 10/21/24 09:05 Pantoprazole 40 Mg/10 Ml Vial IVP 40 mg DAILY TAMIKO Administration Potassium Bicarbonate 20 meq 10/21/24 10:00 Potassium Bicarbonate/Cit Ac 20 Meq Tablet.Eff PO 10/21/24 12:01 Q1HR TAMIKO Protocol Thiamine HCl 100 mg 10/20/24 11:00 10/20/24 13:08 Thiamine 100 Mg/Ml 2 Ml Vial IVP 100 mg DAILY TAMIKO Administration Objective - Vital Signs Vital signs: Vital Signs Temp 97.9 F 10/20/24 20:00 Pulse 87 10/21/24 03:38 Resp 16 10/21/24 03:38 BP 111/63 10/21/24 03:38 Pulse Ox 97 10/21/24 03:38 FiO2 Intake & Output 10/20/24 10/21/24 10/21/24 18:59 06:59 18:59 Intake Total 1080 Balance 1080 Weight 61.235 kg 60.3 kg Intake: Oral 1080 Other: Voiding Method Toilet # Voids 1 - Exam GENERAL: The patient is alert and oriented x3, not in any acute distress. Well developed, well nourished. HEENT: Pupils are round and equally reacting to light. EOMI. No scleral icterus. No conjunctival pallor. Normocephalic, atraumatic. No pharyngeal erythema. No thyromegaly. CARDIOVASCULAR: S1 and S2 present. No murmurs, rubs, or gallops. PULMONARY: Chest is clear to auscultation, no wheezing , no crackles. ABDOMEN: Soft, nontender, nondistended, normoactive bowel sounds. No palpable organomegaly. MUSCULOSKELETAL: No joint swelling or deformity. EXTREMITIES: No cyanosis, clubbing, or pedal edema. NEUROLOGICAL: Gross neurological examination did not reveal any focal deficits. SKIN: No rashes. no petechiae. - Labs CBC & Chem 7: 10/21/24 05:31 10/21/24 05:31 Labs: Abnormal Lab Results - Last 24 Hours (Table) 10/20/24 10/20/24 10/21/24 Range/Units 09:07 09:07 05:31 RBC 3.43 L 3.44 L (3.80-5.40) m/uL MCV 107.1 H 109.5 H (80.0-100.0) fL MCH 36.7 H 37.4 H (25.0-35.0) pg Plt Count 67 L 63 L (150-450) k/uL Lymphocytes # 0.5 L 0.7 L (1.0-4.8) k/uL Sodium 133 L (137-145) mmol/L Potassium (3.5-5.1) mmol/L Chloride 93 L (98-107) mmol/L Carbon Dioxide 32 H (22-30) mmol/L BUN (7-17) mg/dL Creatinine (0.52-1.04) mg/dL Glucose 148 H (74-99) mg/dL Calcium (8.4-10.2) mg/dL Phosphorus 1.8 L (2.5-4.5) mg/dL Total Bilirubin 4.8 H (0.2-1.3) mg/dL Conjugated Bilirubin (0.0-0.3) mg/dL Unconjugated Bilirubin (0.0-1.1) mg/dL Delta Bilirubin (0.0-0.2) mg/dL AST 127 H (14-36) U/L ALT 60 H (4-34) U/L Alkaline Phosphatase 176 H (38-126) U/L Total Protein (6.3-8.2) g/dL 10/21/24 Range/Units 05:31 RBC (3.80-5.40) m/uL MCV (80.0-100.0) fL MCH (25.0-35.0) pg Plt Count (150-450) k/uL Lymphocytes # (1.0-4.8) k/uL Sodium 132 L (137-145) mmol/L Potassium 2.8 L (3.5-5.1) mmol/L Chloride 97 L (98-107) mmol/L Carbon Dioxide 31 H (22-30) mmol/L BUN 5 L (7-17) mg/dL Creatinine 0.45 L (0.52-1.04) mg/dL Glucose 136 H (74-99) mg/dL Calcium 8.3 L (8.4-10.2) mg/dL Phosphorus (2.5-4.5) mg/dL Total Bilirubin 6.0 H (0.2-1.3) mg/dL Conjugated Bilirubin 2.1 H (0.0-0.3) mg/dL Unconjugated Bilirubin 2.1 H (0.0-1.1) mg/dL Delta Bilirubin 1.8 H (0.0-0.2) mg/dL AST 146 H (14-36) U/L ALT 60 H (4-34) U/L Alkaline Phosphatase 171 H (38-126) U/L Total Protein 6.2 L (6.3-8.2) g/dL Assessment and Plan Assessment: Tonic-clonic seizure lasted for 2 minutes Alcohol use disorder at risk of alcohol withdrawal Anxiety Maculopapular rash of the trunk and proximal extremities Stomach upset most likely related to alcohol and allergic reaction with a rash Alcoholic transaminitis Mild hyponatremia, most likely hypovolemic, improving Plan: Encourage hydration Continue with CIWA and IV hydration Continue monitoring rash, improving as per patient Neurology team consult Patient started on Keppra 500 mg twice daily Labs and medication were reviewed.. Continue same treatment. Continue with symptomatic treatment. Resume home medication. Monitor labs and vitals. DVT and GI prophylaxis. Further recommendations as per clinical course of the patient DVT prophylaxis: Subcutaneous heparin GI Prophylaxis: Pepcid PT/OT: Pending Prognosis is guarded
[2024-10-21] MEDS ORDERED: POTASSIUM CHLORIDE ER 20 MEQ TAB.ER PO SCH (10:00)
--- NOTE | 2024-10-21 10:24 | P.PN ---
Subjective Progress Note Date: 10/21/24 Principal diagnosis: Second seizure, likely in the setting of alcohol withdrawal. Ms. Biggs is a 48-year-old right-handed female with history of asthma as well as cancer, hypertension, pancreatitis, melanoma, major depression, and anxiety. Patient was seen in the [facility] emergency room on October 19, 2020 for after suffering a witnessed seizure at home. Family apparently stated she collapsed and shook for a period of time. She does state that she bit her tongu e on the side but did not lose you urinary or bowel incontinence. Of note, she does report a previous seizure approximately 4 years ago, however did not take medication for this until approximately 2 weeks ago. She was placed on levetiracetam as well as Wellbutrin for anxiety, but was discontinued from Wellbutrin approximately a week ago. She does note a history of alcohol use and notes drinking at least 3 to 4 glasses of wine 2 days ago but did not drink yesterday. She was loaded with Keppra 1000 mg x 1 in the emergency room yesterday, she has had no further seizure events and feels stable at this time. When she was seen initially October 20, 2024, a routine electroencephalogram was scheduled for the patient. She was placed on Keppra 500 mg twice daily overnight. In the morning October 21, 2024, the patient says that she is feeling back to her baseline and does not feel tremor-like tremulous or have any signs of fever. Her EEG was performed, but has not been read as of yet. I will do so and then likely taper the Keppra if this is negative. She has been warned not to drive for at least 6 months until she is seizure-free. Conclusion: Ms. Gruber is a 48-year-old right-handed female with history of alcohol use/abuse. She did not drink for 2 days prior to her h ospitalization and suffered what appeared to be a generalized seizure. Electroencephalogram is pending at this time. 1. I will redirect electroencephalogram this afternoon and if negative, I will taper her Keppra with 500 mg daily for the next 3 days then discontinue. 2.The patient was recommended not to drive until she has been seizure-free for at least 6 months and she acknowledged receipt of this information. 3. Patient is cleared for discharge per neurology standpoint. Again we will try read the EEG will make changes to her medications and/or call the attending physician regarding discharge plans. Objective - Vital Signs Vital signs: Vital Signs Temp 98.8 F 10/21/24 08:00 Pulse 87 10/21/24 08:00 Resp 18 10/21/24 08:00 BP 116/79 10/21/24 08:00 Pulse Ox 97 10/21/24 08:00 FiO2 Intake & Output 10/20/24 10/21/24 10/21/24 18:59 06:59 18:59 Intake Total 1080 Balance 1080 Weight 61.235 kg 60.3 kg Intake: Oral 1080 Other: Voiding Method Toilet # Voids 1 - Labs CBC & Chem 7: 10/21/24 05:31 10/21/24 05:31 Labs: Abnormal Lab Results - Last 24 Hours (Table) 10/21/24 10/21/24 Range/Units 05:31 05:31 RBC 3.44 L (3.80-5.40) m/uL MCV 109.5 H (80.0-100.0) fL MCH 37.4 H (25.0-35.0) pg Plt Count 63 L (150-450) k/uL Lymphocytes # 0.7 L (1.0-4.8) k/uL Sodium 132 L (137-145) mmol/L Potassium 2.8 L (3.5-5.1) mmol/L Chloride 97 L (98-107) mmol/L Carbon Dioxide 31 H (22-30) mmol/L BUN 5 L (7-17) mg/dL Creatinine 0.45 L (0.52-1.04) mg/dL Glucose 136 H (74-99) mg/dL Calcium 8.3 L (8.4-10.2) mg/dL Total Bilirubin 6.0 H (0.2-1.3) mg/dL Conjugated Bilirubin 2.1 H (0.0-0.3) mg/dL Unconjugated Bilirubin 2.1 H (0.0-1.1) mg/dL Delta Bilirubin 1.8 H (0.0-0.2) mg/dL AST 146 H (14-36) U/L ALT 60 H (4-34) U/L Alkaline Phosphatase 171 H (38-126) U/L Total Protein 6.2 L (6.3-8.2) g/dL
[2024-10-21] MEDS: POTASSIUM BICARBONATE/CIT AC 20 MEQ TABLET.EFF PO SCH (10:42)
[2024-10-21 18:10] LABS: Magnesium 1.6 mg/dL (1.6-2.3); Potassium 3.5 mmol/L (3.5-5.1)
[2024-10-21] MEDS: POTASSIUM CHLORIDE ER 20 MEQ TAB.ER PO SCH (18:39)
[2024-10-21 19:04] LABS: Appearance,Urine Clear (Clear); Bilirubin,Urine Negative (Negative); Blood,Urine Negative (Negative); Color,Urine Yellow; Glucose,Urine (UA) 4+ (Negative); Ketones,Urine Negative (Negative); Leukocyte Esterase,Urine Negative (Negative); Nitrite,Urine Negative (Negative); PH, Urine 7.5 (5.0-8.0); Protein,Urine Negative (Negative); Specific Gravity,Urine 1.008 (1.001-1.035); Urobilinogen,Urine <2.0 mg/dL (<2.0)
[2024-10-21 19:17] LABS: Amphetamine Screen,Urine Not Detected (NotDetected); Barbiturate Screen,Urine Not Detected (NotDetected); Benzodiazepines Screen,Urine Detected (NotDetected); Cocaine Screen,Urine Not Detected (NotDetected); Methadone Screen, Urine Not Detected (NotDetected); Opiate Screen,Urine Not Detected (NotDetected); Oxycodone Screen, Urine Not Detected (NotDetected); Phencyclidine Screen,Urine Not Detected (NotDetected); Tricyclic Antidepressant,Urine Not Detected (NotDetected); Urn Cannabinoid Scrn Not Detected (NotDetected)
--- NOTE | 2024-10-21 21:08 | EEG ---
ELECTROENCEPHALOGRAM REPORT BRIEF HISTORY: A 48-year-old female, who had a seizure at home with possible alcohol use. CURRENT MEDICATIONS: 1. Folate. 2. Ativan. 3. Magnesium oxide. 4. Multivitamin. 5. Narcan. 6. Zofran. 7. Keppra. CHARACTERIZATION OF RECORD: This 20-minute electroencephalogram was characterized by background rhythm of 9 to 11 Hertz alpha to low beta rhythm, which was not occipitally dominant, but was reactive to eye opening and eye closure. There were some additional electronic artifact in the right frontal and temporal areas. Photic stimulation was performed and resulted in a driving response from 10 to 20 Hertz. No hyperventilation was performed. There were no evidence of sleep features on this electroencephalogram. Throughout this electroencephalogram, there was no evidence of focal slowing, focal spikes, sharp waves, or rapid epileptiform discharges. CONCLUSION: This is a normal 20-minute electroencephalogram. MMODL / IJN: [id number] /
[2024-10-22] MEDS: levETIRAcetam 500 MG TAB PO SCH (08:21)
[2024-10-22 14:10] VITALS: BP 129/82; PULSE 89; RESP 17; TEMP 98
--- NOTE | 2024-10-24 22:22 | CDI ---
Documentation Clarification Form Date: 10/24/2024 10:10:48 PM From: Fay Moseley Phone: Admit Date: 10/19/2024 09:18:00 PM Patient Name: Juli Biggs Visit Number: [id number] Discharge Date: 10/22/2024 04:42:00 PM ATTENTION: The Clinical Documentation Specialists (CDI) and [facility] Coding Staff appreciate your assistance in clarifying documentation. Please respond to the clarification below the line at the bottom and electronically sign. The CDI & [facility] Coding staff will review the response and follow-up if needed. Please note: Queries are made part of the Legal Health Record. If you have any questions, please contact the author of this message via ITS. Doctor/Provider: Ian E Sheet Tonic-clonicseizurelasted for 2 minutes Progress Note 10/21 Secondseizure,likelyin the setting ofalcohol withdrawal Progress Note 10/21 Clarification regarding the type of seizure is requested. History/risk factors: 48yo F, seizure, anxiety, maculopapularrashof the trunk and proximal extremities, stomach upsetmostlikelyrelated to alcohol,allergicreactionwith kerwin, ETOHtransaminitis, HTN, mildhyponatremia, hypovolemic Clinical Indicators: BAL: <10; did not drink for 2 days prior to her hospitalization and suffered what appeared to be a generalizedseizure. EEG: we will try read theMICHAELwill make changes to her Rx and/or call the attending physician regarding discharge plans. Treatment: HerEEGwas performed, but has not been read as of yet. I will do so and then likely taper the Keppra if this is negative. She has been warned not to drive for at least 6 months until she isseizure-free. Please clarify the type(s) of seizure(s), if known: [ ] Tonic-clonicseizureonly [ x ] Alcohol withdrawal seizure only [ ] Tonic-clonicseizureand Alcohol withdrawal seizure [ ] Other condition (please specify) [ ] Unable to determine (Template Last Revised: December 2020) MTDD
== END 2024-10-22 16:42 | disposition home or self-care (01) | DRG 897 ==
LOC: EC 20:56 → 3SCARD 21:18 → 6NMEDSUR 10-21 12:37
PROVIDERS: ADMIT Hospitalist; ATTEND Hospitalist
DX: F10.239 Alcohol dependence with withdrawal, unspecified (principal); E87.1 Hypo-osmolality and hyponatremia; G40.509 Epileptic seizures related to external causes, not intractable, without status epilepticus; I10 Essential (primary) hypertension; F32.9 Major depressive disorder, single episode, unspecified; E78.5 Hyperlipidemia, unspecified; E86.1 Hypovolemia; K30 Functional dyspepsia; F41.9 Anxiety disorder, unspecified; R74.01 Elevation of levels of liver transaminase levels; R21 Rash and other nonspecific skin eruption; Y90.0 Blood alcohol level of less than 20 mg/100 ml; Z79.899 Other long term (current) drug therapy; Z79.1 Long term (current) use of non-steroidal anti-inflammatories (NSAID); Z85.820 Personal history of malignant melanoma of skin
CPT/HCPCS: 36415; 70450; 80048; 80053; 80076; 80143; 80179; 80306; 80320; 81003; 82140; 82607; 83690; 83735; 84100; 84132; 84703; 85025; 93005; 95816; 96361; 96365; 96375; 96376; 99285

== ENCOUNTER → 2024-11-03 | Outpatient (CLI) | payer BC ==
--- NOTE | 2024-11-03 08:07 | US ---
EXAMINATION TYPE: US abdomen limited DATE OF EXAM: 11/03/2024 COMPARISON: 07/16/20 CLINICAL INDICATION: Female, 48 years old with history of K76.0 FATTY (CHANGE OF) LIVER, NOT ELSEWHER E CLASS; fatty liver TECHNIQUE: Grayscale and color Doppler imaging of the right upper quadrant was performed. FINDINGS: EXAM MEASUREMENTS: Liver Length: 18.3 cm Gallbladder Wall: 0.3 cm CBD: 0.3 cm Right Kidney: 11.8 x 5.5 x 4.1 cm [employer] NOTES: Pancreas: heterogeneous appearance Liver: enlarged and heterogeneous Gallbladder: debris seen inside Evidence for sonographic Almeida's sign: No CBD: wnl Right Kidney: wnl IMPRESSION: 1. No evidence for acute process. 2. Hepatic steatosis. [facility] Kevin Corona, , 11/03/2024 8:05 AM
== END | disposition home or self-care (01) ==
LOC: RADUSWWP 07:06
PROVIDERS: ATTEND Family Medicine
DX: K76.0 Fatty (change of) liver, not elsewhere classified (principal); R74.01 Elevation of levels of liver transaminase levels
CPT/HCPCS: 76705

== ENCOUNTER → 2024-11-30 | Outpatient (CLI) | payer BC ==
[2024-11-30 19:57] LABS: ALT 35 U/L (8-44); AST 35 U/L (13-35); Albumin 4.1 g/dL (3.8-4.9); Albumin/Globulin Ratio 1.71 Ratio (1.60-3.17); Alkaline Phosphatase 121 U/L (41-126); BUN/Creat Ratio 11.33 Ratio (12.00-20.00); Blood Urea Nitrogen 6.8 mg/dL (9.0-27.0); Calcium 9.6 mg/dL (8.7-10.3); Carbon Dioxide 28.7 mmol/L (21.6-31.8); Chloride 98 mmol/L (96-109); Globulin 2.4 g/dL (1.6-3.3); Glucose 216 mg/dL (70-110); Potassium 4.1 mmol/L (3.5-5.5); Sodium 136 mmol/L (135-145); Total Bilirubin 0.7 mg/dL (0.3-1.2); Total Protein 6.5 g/dL (6.2-8.2)
[2024-11-30 20:10] LABS: Basophils # (A) 0.03 X 10*3/uL (0.00-0.10); Basophils % (A) 0.4 %; Eosinophils # (A) 0.28 X 10*3/uL (0.04-0.35); Eosinophils % (A) 3.5 %; HGB 12.9 g/dL (12.0-15.0); Lymphocytes # (A) 2.15 X 10*3/uL (0.90-5.00); Lymphocytes % (A) 26.6 %; MCH 34.7 pg (27.0-32.0); MCHC 33.9 g/dL (32.0-37.0); MCV 102.2 FL (80.0-97.0); Mean Platelet Volume 11.1 FL (9.5-12.2); Monocytes # (A) 0.59 X 10*3/uL (0.20-1.00); Monocytes % (A) 7.3 %; NRBC Per 100 WBC 0 X 10*3/uL (0.00-0.01); Neutrophils # (A) 5.01 X 10*3/uL (1.80-7.70); Neutrophils % (A) 61.8 %; Platelet Count 296 X 10*3/uL (140-440); RBC 3.72 X 10*6/uL (4.10-5.20); RDW 11.3 % (11.5-14.5); WBC 8.09 X 10*3/uL (4.50-10.00)
== END | disposition home or self-care (01) ==
LOC: LABWHC1 15:21
PROVIDERS: ATTEND Internal Medicine Gastroenterology
DX: R74.01 Elevation of levels of liver transaminase levels (principal)
CPT/HCPCS: 36415; 80053; 85025